=== PATIENT | female | born 1985 ===

== ENCOUNTER 2017-09-19 23:49 | Emergency (ER) | payer OTHER ==
[2017-09-19 23:59] VITALS: RESP 16; O2SAT 100
[2017-09-20] MEDS ORDERED: Sodium Chloride 0.9% 1,000 ML IV STA (00:42)
--- NOTE | 2017-09-20 00:58 | ED PDOC ---
Syncope/Near Syncope/Dizziness Time Seen by Provider: 09/20/17 00:30 Chief Complaint (Nursing): Dizziness/Lightheaded Chief Complaint (Provider): Dizziness/Lightheaded History Per: Patient History/Exam Limitations: no limitations Onset/Duration Of Symptoms: Hrs (x3 [employer]) Current Symptoms Are (Timing): Still Present Additional Complaint(s): 31 year old female with medical history of anemia, presents to the emergency department for an evaluation of near-syncope associated with nausea, lightheadedness and blurry vision, onset around 2200 earlier tonight. Patient states she was taking a hot shower for 45 minutes when symptoms began then proceeded to sit on the floor of her tub for an additional 30 minutes. She denies any LOC, chest pain, shortness of breath or vomiting. Presently, she reports mild improvement in symptoms with some persistent nausea and lightheadedness. PMD: Cornelius Knapp MD Past Medical History Reviewed: Historical Data, Nursing Documentation, Vital Signs Vital Signs: Last Vital Signs Temp 97.6 F 09/19/17 23:57 Pulse 76 09/19/17 23:57 Resp 16 09/19/17 23:57 BP 108/70 09/19/17 23:57 Pulse Ox 100 09/19/17 23:57 - Medical History PMH: Anemia - Surgical History Surgical History: No Surg Hx - Family History Family History: States: Unknown Family Hx - Social History Current smoker - smoking cessation education provided: No Ex-Smoker (has not smoked in the last 12 months): No Alcohol: None Drugs: Denies - Allergies Allergies/Adverse Reactions: Allergies Allergy/AdvReac Type Severity Reaction Status Date / Time No Known Allergies Allergy Verified 09/19/17 23:59 Review of Systems ROS Statement: Except As Marked, All Systems Reviewed And Found Negative Eyes: Positive for: Vision Change (blurry) Cardiovascular: Negative for: Chest Pain Respiratory: Negative for: Shortness of Breath Gastrointestinal: Positive for: Nausea. Negative for: Vomiting Neurological: Positive for: Dizziness (near-syncope and lightheaded). Negative for: Other (LOC) Physical Exam - Reviewed Nursing Documentation Reviewed: Yes Vital Signs Reviewed: Yes - Physical Exam Appears: Positive for: No Acute Distress Head Exam: Positive for: ATRAUMATIC, NORMAL INSPECTION, NORMOCEPHALIC Skin: Positive for: Pallor. Negative for: Normal Color Eye Exam: Positive for: Normal appearance, EOMI, PERRL ENT: Positive for: Normal ENT Inspection Neck: Positive for: Normal, Supple Cardiovascular/Chest: Positive for: Regular Rate, Rhythm. Negative for: Murmur Respiratory: Positive for: Normal Breath Sounds. Negative for: Wheezing, Respiratory Distress Gastrointestinal/Abdominal: Positive for: Normal Exam, Soft. Negative for: Tenderness Extremity: Positive for: Normal ROM (upper/lower). Negative for: Deformity ( upper/lower) Neurologic/Psych: Positive for: Alert (x3), Oriented. Negative for: Motor/ Sensory Deficits - Laboratory Results Result Diagrams: 09/20/17 01:06 09/20/17 01:06 - ECG O2 Sat by Pulse Oximetry: 100 (RA) Pulse Ox Interpretation: Normal Medical Decision Making Medical Decision Making: Initial Impression: 31 year old female with near syncopal event in setting of anemia and previous history of syncopal episodes Initial Plan: * EKG * Alcohol serum * CMP * Drug screen, urine * Urine * Urine dipstick * CBC * NS 1,000mls IV per 1,000mls/hr * Zofran inj 4mg IV * Accucheck Time: 0140 --Labs: no significant abnormality. --Upon provider reevaluation, patient reports improvement in symptoms. She is medically stable and requires no further treatment in the ED at this time. Patient will be discharged home and advised to follow up with PMD in 2 days. Counseling was provided and all questions were answered regarding diagnosis. There is agreement to discharge plan. Return if symptoms persist or worsen. Clinical Impression: Vasovagal Syncope Scribe Attestation: Documented by Susanne Tellez, acting as a scribe for Kwadwo Tipton MD. Provider Scribe Attestation: All medical record entries made by the Scribe were at my direction and personally dictated by me. I have reviewed the chart and agree that the record accurately reflects my personal performance of the history, physical exam, medical decision making, and the department course for this patient. I have also personally directed, reviewed, and agree with the discharge instructions and disposition. Disposition - Clinical Impression Clinical Impression: Vasovagal syncope - Patient ED Disposition Is Patient to be Admitted: No Counseled Patient/Family Regarding: Studies Performed, Diagnosis, Need For Followup - Disposition Referrals: Cornelius Knapp MD [Primary Care Provider] - Disposition: Routine/Home Disposition Time: 01:40 Condition: STABLE Instructions: Vasovagal Response Forms: [email or web address] (Armenian)
[2017-09-20 01:10] LABS: BASO % 0.2 % (0.0-2.0); EOS # 0.1 K/uL (0.0-0.7); EOS % 0.5 % (0.0-4.0); HEMOGLOBIN 11.7 g/dL (12.0-16.0); LYMPH # 1.1 K/uL (1.0-4.3); LYMPH % 10.1 % (20.0-40.0); MEAN CELL VOLUME 80.7 fl (81.0-99.0); MEAN CORPUSCULAR HEMOGLOBIN 26.8 pg (27.0-31.0); MEAN CORPUSCULAR HGB CONC 33.2 g/dL (33.0-37.0); MEAN PLATELET VOLUME 10.7 fl (7.2-11.7); MONO # 0.5 K/uL (0.0-0.8); MONO % 4.7 % (0.0-10.0); NEUT # 9.4 K/uL (1.8-7.0); NEUT % 84.5 % (50.0-75.0); NRBC % 0.1 % (0.0-0.0); RBC 4.38 Mil/uL (3.80-5.20); RED CELL DISTRIBUTION WIDTH 15.1 % (11.5-14.5); WHITE BLOOD COUNT 11.1 K/uL (4.8-10.8)
[2017-09-20 01:19] LABS: ALB/GLOB RATIO 1.3 (1.0-2.1); ALT/SGPT 27 U/L (9-52); AST/SGOT 19 U/L (14-36); BLOOD UREA NITROGEN 14 mg/dl (7-17); GFR AFRICAN-AMERICAN > 60; GFR NON-AFRICAN AMERICAN > 60
[2017-09-20 02:09] LABS: BARBITURATES, UR NEGATIVE (NEGATIVE); BENZODIAZEPINES, UR NEGATIVE (NEGATIVE); OPIATES, UR NEGATIVE (NEGATIVE); PHENCYCLIDINE, UR NEGATIVE (NEGATIVE)
[2017-09-20 02:43] VITALS: BP 101/65; PULSE 77; TEMP 98
--- NOTE | 2017-09-20 10:16 | CARD ---
APPROVED REPORT EKG Measurement Heart [id number] <Conclusion> Normal sinus rhythm Normal ECG
== END 2017-09-20 02:41 | disposition home or self-care (01) ==
LOC: H.ER 23:49
DX: R55 Syncope and collapse (principal); D64.9 Anemia, unspecified
CPT/HCPCS: 80053; 80320; 80324; 80345; 80346; 80349; 80353; 80358; 80361; 81025; 82948; 83992; 85025; 93005; 96360; 99283; J2405; J7040